=== PATIENT | female | born 2000 | race Caucasian/White ===

== ENCOUNTER → 2019-01-11 | Outpatient (CLI) | payer OTHER ==
[~2019-01-11] MED LIST: ADDERALL 5 MG TA5 M1 PO; HUMIRA40 MG/0.8 SUBQ; LILLOW-28 TABL1 EACH PO; XANAX 0.5 MG0.5 MG PO
[2019-01-11 12:05] VITALS: BP 108/73
[2019-01-11 13:20] VITALS: BP 103/67
--- NOTE | 2019-01-11 16:37 | NUR ---
IN FOR 1ST INJECTAFER INFUSION FOR IRON DEFICIENCY ANEMIA. ADMISSION HISTORY AND ASSESSMENT COMPLETED. MAIN COMPLAINT IS FATIGUE. PATIENT HAS A MILD ALLERGY TO PENICILLIN. INFUSED INJECTAFER OVER 30 MINUTES AND TOLERATED WELL WITHOUT INCIDENT. POST VITAL SIGNS GOOD. OBSERVED FOR 30 MINUTES WITH NO REACTION NOTED. DISMISSED IN GOOD CONDITION. TO RETURN NEXT THURSDAY FOR 2ND INFUSION.
== END ==
LOC: OPONC 11:38
DX: D50.0 Iron deficiency anemia secondary to blood loss (chronic) (principal); N92.0 Excessive and frequent menstruation with regular cycle
CPT/HCPCS: 95000

== ENCOUNTER → 2019-01-18 | Outpatient (CLI) | payer OTHER ==
[2019-01-18 12:04] VITALS: BP 106/65
[2019-01-18 13:30] VITALS: BP 112/58
--- NOTE | 2019-01-18 15:11 | NUR ---
IN FOR 2ND INJECTAFER INFUSION. STATED HAD SOME MILD NAUSEA THE MORNING AFTER HER LAST INFUSION BUT IT DID NOT LAST LONG. TOLERATED INFUSION WITHOUT INCIDENT. OBSERVED FOR 30 MINUTES WITH NO REACTION NOTED. POST BP 115/58. DENIED DIZZINESS. REMOVED AND IV AND DISMISSED IN GOOD CONDITION.
== END ==
LOC: OPONC 01:53
DX: D50.0 Iron deficiency anemia secondary to blood loss (chronic) (principal); N92.0 Excessive and frequent menstruation with regular cycle
CPT/HCPCS: 95000

== ENCOUNTER → 2019-01-21 | Outpatient (CLI) | payer OTHER | LOC: ULTRA 09:35 | DX: N83.202 Unspecified ovarian cyst, left side (principal) ==

== ENCOUNTER → 2020-05-02 | Outpatient (CLI) | payer OTHER | LOC: RAD 12:24 | PROVIDERS: ATTEND Nurse Practitioner | DX: M54.5 Low back pain (principal) ==